=== PATIENT | male | born 1995 | race Caucasian/White ===

== ENCOUNTER 2024-03-11 16:48 | Emergency (ER) | payer OTHER, SELFPAY ==
[2024-03-11 16:49] VITALS: BP 120/88; PULSE 78; RESP 16; TEMP 36.8; O2SAT 100; BMI 25.6
--- NOTE | 2024-03-11 17:02 | ED.RN ---
Spoke w/ Whitney from [facility]. She will be in for screening.
--- NOTE | 2024-03-11 17:15 | RAD_ITS ---
INDICATION: TRAUMA EXAMINATION/TECHNIQUE: X-RAY - LEFT XR Hand Min 3 Views 3 VIEWS COMPARISON: FINDINGS: BONES: Comminuted fracture proximal phalanx of the thumb midshaft extends distally to the articular surface at the interphalangeal joint, with minimal displacement. JOINTS: No dislocation. SOFT TISSUES: Unremarkable. RAD/Hand Min 3 Views IMPRESSION: Acute comminuted intra-articular fracture proximal phalanx of the thumb. Electronically Signed: Maribel Amaro MD at 18:18 EDT ,
--- NOTE | 2024-03-11 17:56 | EX.ED.UPPERE ---
HPI History of Present Illness HPI Narrative: Healthy 28-year-old male history of depression and anxiety. An hour ago was at work cut his left thumb caught in a clamp type of device. Causing a laceration to the dorsum of his left thumb. He is right-hand dominant. Tetanus is up-to-date this year. Is having numbness distally to the thumb. Chief Complaint: Upper Extremity Injury Informant: patient Occured/Mechanism Mechanism/Context: Yes injury Onset/Context/Timing Onset: Today Context: Sudden Onset Timing: Continuous Quality of Pain: Sharp Current Severity: Moderate Maximum Severity: Moderate Associated Symptoms Associated Symptoms: Positive for Parasthesia; Negative for Weakness or Loss of Funtion Narrative Narrative: 20-year-old male Worker's Comp. injury left thumb about an hour ago. Tetanus up-to-date. Tetanus Immunization: <5 years Prior similar symptoms: No Recent Illness/Hospitalization: No PFSH PFSH Medical History no medical history Home Medications ?Medication ?Instructions ?Recorded ?Last Taken ?Type cephalexin 500 mg capsule 500 mg PO TID 7 days #21 caps 03/11/24 Unknown Rx hydrocodone-acetaminophen 5-325mg 1 tab PO Q6H PRN pain 4 days #16 03/11/24 Unknown Rx 5mg-325mg tabs Allergy/AdvReac Type Severity Reaction Status Date / Time No Known Allergies Allergy Verified 03/11/24 16:50 Social History Smoking Status: Never smoker ROS ROS ED ROS Narrative Denies recent illness. Constitutional Constitutional ED: Denies chills or fever(s) Eyes Eyes: Denies blurry vision ENT ENT ED: Denies ear pain Cardiovascular Cardiovascular: Denies chest pain Respiratory/Chest Respiratory/Chest: Denies cough Gastrointestinal Gastrointestinal: Denies abdominal pain Genitourinary Genitourinary ED: Denies dysuria or hematuria Musculoskeletal Musculoskeletal: Denies back pain Integumentary Denies abscess Neurologic Neurologic: Denies headache(s) Psychiatric Psychiatric: Denies anxiety Endocrine Endocrinology: Denies cold intolerance Hematologic/Lymphatic Hematologic/Lymphatic: Denies easy bleeding Allergic/Immunologic Allergic/Immunologic ED: Denies mouth swelling EXAM Physical Exam Narrative Exam Narrative: Well-appearing 28-year-old male. Vital signs stable afebrile. H EENT exam unremarkable. Lungs clear. Heart regular rhythm. Abdomen soft nontender. Moving all 4 extremities. Left thumb bandaged. Bandage taken off. Dorsum of his left thumb over the proximal phalanx between his metacarpal phalangeal and interphalangeal joint there is a diagonal laceration. Involves the skin and subcu tissue. Does appear to have some partial extensor tendon involvement on the radial side. He also distally has normal cap refill but does have decreased sensation there may be a digital nerve injury. He can extend and hold it. There does not appear to be a complete tendon rupture. There is minor bleeding. Otherwise the hands unremarkable. As is the wrist. Const Vital Signs: 03/11/24 16:49 Temperature 98.3 F Temperature Source Oral Pulse Rate 78 Respiratory Rate 16 Blood Pressure 120/88 H Blood Pressure Mean 98 Pulse Ox 100 Oxygen Delivery Method Room Air Positive well nourished and well developed; Negative for obese, cachectic, contractures or unkempt General Appearance ED: well developed and NAD; Negative for unkempt, cachectic, contractures, cyanotic or diaphoretic Nutritional Appearance: Negative for cachectic or obese HEENT Reports moist mucous membranes normocephalic and atraumatic; Negative for trauma or tenderness Eyes PERRL and EOMs intact bilaterally General Eye ED: Negative for other Neck full ROM and supple General: Negative for tenderness Chest Wall inspection of chest normal and palpation of chest normal Chest: Negative for other Resp normal respiratory effort and clear to auscultation bilaterally Effort and Inspection: Negative for pain with movement Auscultation: Negative for rales, rhonchi, wheezes or diminished lung sounds Cardio regular rate, regular rhythm, S1 normal heart sound, S2 normal heart sound and no murmurs Rate: Negative for bradycardia or tachycardic Rhythm: Negative for abnormal rhythm GI non-tender, non-distended and no masses Inspection: Negative for abdominal distention Auscultation: normoactive bowel sounds Palpation: soft; Negative for tender, guarding or rebound tenderness present Back/Spine no CVA tenderness General Back: Negative for CVA tenderness Cervical Spine: Negative for cervical spine tenderness Thoracic Spine / Upper Back: Negative for thoracic spinal tenderness Lumbar Spine / Lower Back: Negative for lumbar spinal tenderness Extremity normal to inspection and full ROM Extremity Narrative: Except left thumb. Dorsum between his am CPE and interphalangeal joint there is a diagonal laceration involve the skin and subcu tissue. Does appear to have some partial extensor tendon involvement on the radial side. He has full flexion extension. He can extend against resistance. Distally he has decreased sensation there may be a digital nerve injury. There is minor bleeding. No significant swelling. He does have bony tenderness. Neuro oriented x3, CN's II-XII intact bilaterally, moves all extremities, no focal motor deficits and No no sensory deficits noted Sensorium / Orientation: alert, oriented to person, oriented to place and oriented to time Motor Exam: strength 5/5 throughout Psych mental status grossly normal Appearance: Negative for unkempt Mood & Affect: Negative for depressed, anxious or tearful Skin Lesions: no lesions Rashes: no rashes Trauma: laceration MDM MDM MDM Narrative Medical decision making narrative: 28-year-old male Worker's Comp. injury as a an open fracture of his left thumb proximal phalanx. Concern also for partial extensor tendon laceration and/or partial digital nerve injury with decreased sensation. However plastic surgery did 2 point discrimination and patient had good sensation. Plastic surgery will also evaluate the tendon better. Tetanus is up-to-date. I have already spoken to plastic surgery Dr. Roach who is coming into the emergency department to evaluate the patient whether he can take him to the OR tonight or just wash it out and thinks it electively in the next several days. Procedures Upper Extremity Splints Upper Extremity Splint: Orthoglass and - (Left thumb spica splint applied by myself.) Splint Fabrication: Fabricated Location: Left Discharge Plan Triage Chief Complaint: Upper Extremity Injury ED Provider: Alfredito Huffman Dx/Rx/DC Orders Clinical Impression: Open fracture of thumb, Encounter related to worker's compensation claim Instructions: ED Fracture, Thumb Prescriptions: New cephalexin 500 mg capsule 500 mg PO TID 7 Days Qty: 21 0RF hydrocodone-acetaminophen 5-325 mg tablet 1 tab PO Q6H PRN (Reason: pain) 4 Days Qty: 16 0RF Referrals: Handy Roach MD [Med Staff - Active Staff] - As soon as possible Activity Restrictions/Additional Instructions: Follow with Dr. Roach for surgery. Ice and elevate. Keep dry and clean. Motrin and Tylenol for pain. If you need stronger I wrote you for hydrocodone for pain. Keep the splint on. Keep it dry and clean. The antibiotic Keflex 1 pill 3 times a day for a week to prevent infection. Print Language: Bolivian Disposition Disposition: Home, Self Care
--- NOTE | 2024-03-11 17:56 | EX.PCM.CON.S ---
Assessment & Plan Assessment/Plan (1) Open fracture of thumb: PLAN: Open thumb fracture was washed out and an attempted fracture reduction was performed in the emergency department (please see separate operative note for dictation) tonight patient's tetanus is up-to-date He will be sent home on Keflex Repeat from x-ray following reduction, with Xeroform and a thumb spica Patient to follow-up later this week for further fracture management HPI Consult Data Date of Consult: 03/11/24 HPI Narrative Reason for Consultation: Left thumb open fracture HPI Narrative: FELIPE BYRD is a 28 YO M with a history of bipolar disorder who presents with an open fracture of his left thumb from a crush injury while at work. 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 He was working with a piece of machinery that holds the ceramic material and his thumb got pinched/crushed. Patient complains of sharp severe pain in the left upper extremity, worsened by movements and improved with rest and elevation. 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 He is He does not smoke [facility] Medical History no medical history Home Medications ?Medication ?Instructions ?Recorded ?Last Taken ?Type cephalexin 500 mg capsule 500 mg PO TID 7 days #21 caps 03/11/24 Unknown Rx hydrocodone-acetaminophen 5-325mg 1 tab PO Q6H PRN pain 4 days #16 03/11/24 Unknown Rx 5mg-325mg tabs Allergy/AdvReac Type Severity Reaction Status Date / Time No Known Allergies Allergy Verified 03/11/24 16:50 Social History Smoking Status: Never smoker Physical Exam Narrative Left upper extremity Laceration of the dorsum of the thumb (2 cm) and on the volar thumb (1 cm) with intervening skin bridge Open fracture at the base of the laceration Deformity with radial angulation of the thumb at the level of the fracture Thumb ulnar and radial collateral ligaments intact at neutral and 30 degrees of flexion with ulnar and stress. Motor: Intact flexion and extension at the IP joint of left thumb. He bends and extends with thumb MCP joint as well Sensation: 3 mm 2-point discrimination distal to the zone of injury on the radial and ulnar borders of the left thumb (he was 3 mm on the contralateral uninjured as well). His sensation to pinprick is also intact in the radial and ulnar borders of the left hand. Vascular: Biphasic Doppler signal on the volar thumb on its radial and ulnar sides (intact digital arteries distal to the zone of injury) Const oriented x3 General Appearance: cooperative HEENT normocephalic Resp normal respiratory effort Cardio Rate: regular rate Rhythm: regular rhythm Imaging I reviewed the left hand x-ray today (from 11 March 2024) There is a comminuted intra-articular thumb proximal phalanx fracture (intra-articular with IP joint). It is displaced Charges/Coding Visit Charges Office Visits / Consults: [id number] OP Consult L5
--- NOTE | 2024-03-11 18:03 | OP.PCM_ITS ---
Problems Associated Problem List Diagnoses (1) Open fracture of thumb: Operative Report Date of Procedure: 03/11/24 Procedure Date: 11 March 2024 Incision/Procedure Start Time: 6: 15 pm Incision Close/Procedure End Time: 6: 45 pm PATIENT: Nolan Delcid PRE-OPERATIVE DIAGNOSIS: Left Thumb Crush Injury with Open Fracture of the Proximal Phalanx POST-OPERATIVE DIAGNOSIS: Same PROCEDURE PERFORMED: 1) Washout of open fracture, left upper extremity, CPT 24400 2) simple laceration repair, volar thumb, 1 cm, CPT 46632 3) simple laceration repair, dorsal thumb, 2 cm, CPT 36297 OPERATIVE FINDINGS: * Superficial laceration on the volar side of the thumb (seem to be just through to subcutaneous tissue). No obvious digital nerve injury at the base of the wound. * EPL was visualized through the dorsal laceration, and was slightly frayed from the crush injury on the radial side, but was greater than 90% intact. INDICATIONS: Nolan Humphrey is a 28-year-old male with past medical history of bipolar disorder who had a thumb crush injury while at work. He sustained an open fracture to his proximal phalanx, which was intra-articular into the IP joint, with the condylar heads both in separate pieces. It was grossly unstable. I recommended immediate washout of the open fractures with closure, and the patient wanted to proceed. My preoperative examination demonstrated that he had full IP joint flexion and extension (no obvious EPL or FPL injuries). He also had 3 mm 2-point discrimination distal to the zone of injury on the radial and ulnar thumb borders, which was the same as the contralateral thumb. The thumb tip is warm and well-perfused per my Doppler exam distal to the zone of injury (good digital artery signal). Patient signed my consent for photos and for the procedure. Urine output: No Osei IV fluids: None Anesthesia: 1% plain lidocaine, 15 cc for digital block OPERATIVE DETAILS: A timeout was performed and the patient was prepped and draped in sterile fashion. The open fracture (bone and tendon at the base of the wound) was irrigated thoroughly with 500 cc of normal saline on both sides (volar and dorsal) and was subsequently explored with the above-noted operative findings. There was no foreign bodies within the wound. He tolerated the procedure well. 3-0 nylon suture was then used to close the volar 1 cm laceration in the dorsal 2 cm laceration with interrupted sutures for simple repair. An attempt at fracture reduction was made but it was quite obvious that the fracture was very unstable and was not going to hold any reduction in place. Xeroform was applied over the incisions and a thumb spica splint was placed. Patient tolerated the procedure well. EBL: 5 cc POST-OPERATIVE PLAN: I reviewed the x-ray following the above-noted procedure. The fracture is significantly displaced and is intra-articular and needs surgery. We will plan for operative fixation. Patient will remain in a thumb spica splint. He has been placed on a course of Keflex for the open fracture and received 2 g of Ancef IV while in the emergency department. Procedures Integumentary [id number]: Other Procedure See Report (Operative Report )
[2024-03-11 18:49] VITALS: BP 121/76; PULSE 76; RESP 16; O2SAT 99
--- NOTE | 2024-03-11 18:56 | RAD_ITS ---
INDICATION: POST REDUCTION EXAMINATION/TECHNIQUE: X-RAY - LEFT XR Hand Min 3 Views 3 VIEWS COMPARISON: Left hand x-rays earlier. FINDINGS: BONES: Comminuted fracture of the mid to distal aspect of the proximal phalanx of the thumb again noted, extends to the articular surface at the interphalangeal joint. There is now increased displacement of the main transverse component midshaft, approximately 4 to 5 mm of radial/dorsal displacement of the distal fragment increased compared to the earlier study. The distal component of the fracture is nondisplaced. JOINTS: No dislocation. SOFT TISSUES: Unremarkable. RAD/Hand Min 3 Views IMPRESSION: Increased displacement of the midshaft component of the fracture of the proximal phalanx compared to earlier. Electronically Signed: Maribel Amaro MD at 20:19 EDT ,
[2024-03-11] MEDS: Cefazolin 2 GM in 0.9% Normal Saline (100mL Bag) 100 ML IV (19:13)
[2024-03-11] MEDS: Lidocaine 1% (20 ml mdv) 20 ML Vial 10 ML INFILT (19:47)
[2024-03-11 19:55] VITALS: BP 118/69; PULSE 71; RESP 16; TEMP 36.2; O2SAT 99
== END 2024-03-11 19:56 | disposition home or self-care (01) ==
LOC: ED 19:50
PROVIDERS: Emergency Provider Emergency Medicine; Visit Provider Emergency Medicine
DX: S62.512B Displaced fracture of proximal phalanx of left thumb, initial encounter for open fracture (principal); F31.9 Bipolar disorder, unspecified; Y99.0 Civilian activity done for income or pay; F41.9 Anxiety disorder, unspecified; W23.0XXA Caught, crushed, jammed, or pinched between moving objects, initial encounter
CPT/HCPCS: 12002; 29130; 73130; 96365; 99285

== ENCOUNTER 2024-03-13 08:28 | Day surgery (SDC) | payer OTHER, SELFPAY ==
[2024-03-13] VITALS (7 sets, daily range): BP systolic 121–125; BP diastolic 82–86; PULSE 59–76; RESP 14–16; TEMP 36.5–36.6; O2SAT 99–100; BMI 24.5
--- NOTE | 2024-03-13 09:03 | PRE.ANES_ITS ---
ASA Classification* ASA Classification ASA Classification: 2 Assessment & Plan Anesthesia* Anesthesia Assessment Anesthesia Assessment: Discussed sedation and/or anesthesia options, risks, benefits, and alternatives with patient/parents/legal guardian/POA. Questions invited. The patient/parents/legal guardian/POA seems to understand and agrees to proceed with anesthesia plan. Reviewed the physical assessment, medical history, allergy history and patient home medications list prior to surgery/procedure/anesthetic and documented any changes. Performed airway and anesthesia risk assessments. 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 When Was Last Pacemaker Check QUESTION #4 FULL TEXT: You/Your Family Experience fever (hyperthermia) with Anesthesia Last Oral Intake Last Oral intake: Last Oral Intake NPO since Meds taken in AM with sips of water? Meds patient instructed to take am of surgery PONV PONV - missile control pilot: PONV - missile control pilot Female No 03/12/24 13:24 HX of Motion Sickness No 03/12/24 13:24 HX of N/V After Surgery No 03/12/24 13:24 Non-Smoker Yes 03/12/24 13:24 Duration of Surgery greater Yes 03/12/24 13:24 than 60 minutes Number of Risk Factors 2 03/12/24 13:24 PONV Score Moderate Risk 03/12/24 13:24 Height & Weight Height & Weight: Anesthesia: Height & Weight Height 6 ft 2 in 03/11/24 16:49 Respiratory Assessment Respiratory Assessment - missile control pilot: Respiratory Tract Infection Hx - missile control pilot Hx Respiratory Tract Infection Yes: COVID NO FEVER SINCE 03/12/24 13:24 14/24. MILD COUGH AT THIS TIME STOP Sleep Apnea STOP Sleep Apnea - missile control pilot: STOP Sleep Apnea - missile control pilot Hx Hypertension No 03/12/24 13:24 Hx Sleep Apnea No 03/12/24 13:24 CPAP BIPAP Do you snore loudly (louder Yes 03/12/24 13:24 than talking or can be heard Do you often feel tired/ No 03/12/24 13:24 fatigued/ sleepy during daytime? Has anyone observed you stop Yes 03/12/24 13:24 breathing during sleep? STOP Results Positive 03/12/24 13:24 QUESTION #5 FULL TEXT : Do you snore loudly (louder than talking or can be heard through closed doors)? 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 Specify any problems Hx of Preganancy in last 3 N/A 03/12/24 13:24 Months Nurse Filling Out Transfusion DSCHRIBER 03/12/24 13:24 & Questions: Date: 03/12/24 03/12/24 13:24 Time: 13:27 03/12/24 13:24 Patient unable to answer at this time (ie. confused, unrespo /Reproduction History /Reproductive History - missile control pilot: /Reproductive Hx- missile control pilot Hx Now No 03/12/24 13:24 Gestational Age (in weeks): EDC: Hx Hx Para Hx Section SAB No 03/12/24 13:24 Active Medications Active Medications: Current Medications Generic Name Dose Route Start Last Admin Trade Name Freq PRN Reason Stop Dose Admin Cefazolin Sodium 2 gm/ Sodium 110 mls @ 150 mls/hr 03/13/24 10:30 Chloride IV 03/13/24 11:13 PREOP ONE Lactated Ringer's 1,000 mls @ 15 mls/hr 03/13/24 08:45 IV .Q48H STUART PFSH Medical History Suicide attempt Wears glasses Mood disorder Depression Back pain Injury of back Heartburn Non-smoker Shortness of breath on exertion Leg cramps Home Medications ?Medication ?Instructions ?Recorded ?Last Taken ?Type cephalexin 500 mg capsule 500 mg PO TID 7 days #21 caps 03/11/24 Unknown Rx hydrocodone-acetaminophen 5-325mg 1 tab PO Q6H PRN pain 4 days #16 03/11/24 Unknown Rx 5mg-325mg tabs fluoxetine 20 mg capsule 20 mg PO DAILY 03/12/24 Unknown History oxcarbazepine 150 mg tablet 300 mg PO DAILY 03/12/24 Unknown History Allergy/AdvReac Type Severity Reaction Status Date / Time No Known Allergies Allergy Verified 03/12/24 13:21 Surgical History Hx of wisdom tooth extraction Social History Smoking Status: Never smoker Review of Systems (Anesthesia) ROS Narrative System reviewed and no additional complaints, except as documented.
[2024-03-13] MEDS: Lactated Ringers 1,000 ML 15 ML IV (09:10)
--- NOTE | 2024-03-13 10:20 | RAD_ITS ---
STUDY: X-RAY - LEFT HAND, ATTENTION FIRST FINGER REASON FOR EXAM: Male, 28 years old. ORIF of proximal phalanx of first digit. TECHNIQUE: 2 intraoperative digital documentation view(s) of the finger were obtained. COMPARISON: X-rays of the left hand dated March 11, 2024 FINDINGS: 2 intraoperative digital documentation views show pins placed at the comminuted fracture site in the distal phalanx with near-anatomic alignment. 312 images acquired. 5 images saved. Total exposure time 5 minutes 6 seconds. Longest single exposure 4 seconds. Total DAP 3.3314 mGycm2. Total air kerma 1.3888 mGy. RAD/Finger(s) Min 2 Views IMPRESSION: Intraoperative digital documentation views. Electronically Signed: Nolan Jennings MD at 12:35 EDT ,
--- NOTE | 2024-03-13 10:23 | HP.PCM.SX_ITS ---
HPI - General HPI Narrative FELIPE YBRD is a 28 YO M with a history of bipolar disorder who presents with an open fracture of his left thumb from a crush injury while at work. 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 He was working with a piece of machinery that holds the ceramic material and his thumb got pinched/crushed. Patient complains of sharp severe pain in the left upper extremity, worsened by movements and improved with rest and elevation. 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 He is He does not smoke CURRENT ENCOUNTER, 13 March 2024: Here today for surgery. Meeting him in preop and marking left hand. I discussed with him and his today the procedure and the risks and benefits. NO CHANGE in health history since he was seen in the ED two night ago. COUNTS INCLUDE 234 BEDS AT THE [facility] Medical History Suicide attempt Wears glasses Mood disorder Depression Back pain Injury of back Heartburn Non-smoker Shortness of breath on exertion Leg cramps Home Medications ?Medication ?Instructions ?Recorded ?Last Taken ?Type cephalexin 500 mg capsule 500 mg PO TID 7 days #21 caps 03/11/24 03/13/24 Rx hydrocodone-acetaminophen 5-325mg 1 tab PO Q6H PRN pain 4 days #16 03/11/24 03/13/24 05:15 Rx 5mg-325mg tabs fluoxetine 20 mg capsule 20 mg PO DAILY 03/12/24 03/13/24 05:15 History oxcarbazepine 150 mg tablet 300 mg PO DAILY 03/12/24 03/13/24 05:15 History Allergy/AdvReac Type Severity Reaction Status Date / Time No Known Allergies Allergy Verified 03/12/24 13:21 Surgical History Hx of wisdom tooth extraction Social History Smoking Status: Never smoker Vital Signs Vital Signs Vital Signs: 03/13/24 09:06 03/13/24 09:06 Temperature 97.7 F L Temperature Source Temporal Pulse Rate 59 L Respiratory Rate 16 Respiratory Pattern Normal Blood Pressure 124/83 H Blood Pressure Mean 96 Blood Pressure Source Monitor Blood Pressure Position Semi-Fowlers Blood Pressure Location Right Arm Pulse Ox 100 Oxygen Delivery Method Room Air Weight Weight: 191 lb Body Mass Index (BMI) 24.5 Physical Exam Narrative Left upper extremity Laceration of the dorsum of the thumb (2 cm) and on the volar thumb (1 cm) are intact, no drainge. Deformity with radial angulation of the thumb at the level of the fracture Thumb ulnar and radial collateral ligaments intact at neutral and 30 degrees of flexion with ulnar and stress. Motor: Intact flexion and extension at the IP joint of left thumb. He bends and extends with thumb MCP joint as well Sensation: 3 mm 2-point discrimination distal to the zone of injury on the radial and ulnar borders of the left thumb (he was 3 mm on the contralateral uninjured as well). His sensation to pinprick is also intact in the radial and ulnar borders of the left hand. Vascular: Biphasic Doppler signal on the volar thumb on its radial and ulnar sides (intact digital arteries distal to the zone of injury) REPEAT SENSORY EXAM ON DATE OF SURGERY, 13 Mar 2024: No numbness/tingling in the left thumb. Says it feels normal. His 2 point was done today and was 1-2 mm on the radial and ulnar borders of the thumb distal to the zone of injury (caliper used). Const oriented x3 General Appearance: cooperative HEENT normocephalic Resp normal respiratory effort Cardio Rate: regular rate Rhythm: regular rhythm Assessment & Plan Assessment/Plan (1) Encounter related to worker's compensation claim: PLAN: I discussed with him extensively the plan for today's surgery (ORIF v CRPP). His understands risks and benefits. I talked to them about damage to surrounding structures, hardware failure/infection, need for repeat surgery, malunion/nonunion, residual pain, failure to prevent arthritis in the IP joint from the intra-articular portion of the fracture. We talked about post-op plan for several weeks of no lifting, splinting/casting, and hand therapy. They are in agreement and would like to proceed. (2) Open fracture of thumb: Charges/Coding Procedures Integumentary [id number]: Other Procedure See Report (no charge )
[2024-03-13] MEDS: Cefazolin 2 GM in 0.9% Normal Saline (100mL Bag) 100 ML IV (10:40)
[2024-03-13] MEDS: Bupivacaine 0.25% 30 ML Vial (11:50)
--- NOTE | 2024-03-13 12:14 | PCM.POST.ANE ---
Anesthesia: Postop Eval I Current Vital Signs Temperature: 97.7 F Pulse Rate: 76 Blood Pressure: 124/84 Respiratory Rate: 16 Pulse Ox: 99 Oxygen Delivery Method: Room Air Assessment Airway patent: Yes Spontaneous unlabored respirations: Yes Mental status: Awake and Calm nausea: No Vomiting: No Anesthesia Complication: No Fluid Hydration Crystalloid volume administer (ml): 600 Total IV fluid infused: 600 Progress Note Anesthesia document: Postop Eval 1 completed: Yes
--- NOTE | 2024-03-13 12:31 | POSTOPAN2_ITS ---
Anesthesia Postop Eval I Sum Postop Eval Completion status Anesthesia document: Postop Eval 1 completed: Yes Anesthesia Postop Eval I Summary Anesthesia Postop Eval I Summary: Anesthesia Postop Eval I: Assessment Summary Airway patent Yes 03/13/24 12:15 SALES [email or web address] Spontaneous unlabored Yes 03/13/24 12:15 SALES [email or web address] respirations Mental status Awake,Calm 03/13/24 12:15 SALES [email or web address] nausea No 03/13/24 12:15 SALES [email or web address].[email or web address] Vomiting No 03/13/24 12:15 SALES [email or web address] Anesthesia Postop Eval I: Fluid Summary Crystalloid volume administer 600 03/13/24 12:15 SALES [email or web address] (ml) Colloids volume administered ( ml) Blood Product volume administered (ml) Total IV fluid infused 600 03/13/24 12:15 SALES [email or web address] Anesthesia Postop Eval I: Summary Notes Anesthesia Complication No 03/13/24 12:15 SALES [email or web address].[email or web address] Anesthesia Complication Comment: Post-operative progress note Anesthesia: Postop Eval II Evaluation Mental status: Awake Pain Level: 0 nausea: No Vomiting: No
--- NOTE | 2024-03-13 12:31 | PCM.POSTANE2 ---
Anesthesia Postop Eval I Sum Postop Eval Completion status Anesthesia document: Postop Eval 1 completed: Yes Anesthesia Postop Eval I Summary Anesthesia Postop Eval I Summary: Anesthesia Postop Eval I: Assessment Summary Airway patent Yes 03/13/24 12:15 STERILIZATION [email or web address] Spontaneous unlabored Yes 03/13/24 12:15 STERILIZATION [email or web address].[email or web address] respirations Mental status Awake,Calm 03/13/24 12:15 STERILIZATION [email or web address] nausea No 03/13/24 12:15 STERILIZATION TECHNICIAN.[email or web address] Vomiting No 03/13/24 12:15 STERILIZATION [email or web address] Anesthesia Postop Eval I: Fluid Summary Crystalloid volume administer 600 03/13/24 12:15 STERILIZATION [email or web address] (ml) Colloids volume administered ( ml) Blood Product volume administered (ml) Total IV fluid infused 600 03/13/24 12:15 STERILIZATION [email or web address] Anesthesia Postop Eval I: Summary Notes Anesthesia Complication No 03/13/24 12:15 STERILIZATION [email or web address] Anesthesia Complication Comment: Post-operative progress note Anesthesia: Postop Eval II Evaluation Mental status: Awake Pain Level: 0 nausea: No Vomiting: No
--- NOTE | 2024-03-13 18:29 | OP.PCM_ITS ---
Operative Report Date of Procedure: 03/13/24 Surgery/Procedure Date: 13 March 2024 Incision/Procedure Start Time: 11:02 am Incision Close/Procedure End Time: 12:01 pm PATIENT: Nolan Delcid PRE-OPERATIVE DIAGNOSIS: Left thumb fracture POST-OPERATIVE DIAGNOSIS: same PROCEDURE PERFORMED: 1) closed reduction percutaneous pinning of the left thumb fracture, CPT code 07326 OPERATIVE FINDINGS: Reducible proximal phalanx of the left thumb fracture, distal aspect with comminution and then intra-articular component with 2 separate condylar fragments. 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 I washed him out in the emergency department 2 nights ago on 11 March 2024. He was able to bend and extend his thumb at that time and his nerves were intact based on my exam. This morning I repeated the exam so as to make sure we did not miss a nerve injury, and he again had 1-2 mm 2-point discrimination on the radial and ulnar borders of the thumb distal to the zone of injury. I was not concern for nerve injury as he was also not complaining of any numbness or tingling. I talked to him extensively about open reduction internal fixation versus closed reduction percutaneous pinning, and he understood the risk of hardware failure, infection, malunion and nonunion, failure to obtain the desired result, arthritis, pain, and other risks of surgery. He wanted to proceed. Capjohni is 3. OPERATIVE DETAILS: A time-out was performed to confirm patient identity, site of surgery, and planned procedures. After that, the patient was transferred over the the operating table in supine position. Sequential compressive stockings were applied to bilateral lower extremities and activated. General anesthesia was administered. After that, a total of 10 mL of quarter percent bupivacaine was used to perform a digital block at the base of the operative digit for post- operative pain control. The operative extremity was then prepped and draped in the standard sterile fashion. Another time-out was performed to confirm patient identity, review patient allergy, confirm site of surgery, planned procedures, and discuss antibiotic plans. No tourniquet was used. The mini c-arm was also draped sterilely. We began by performing closed reduction of the proximal phalanx fracture of the left thumb u nder fluoroscopy to confirm that the fracture was reducible. This was found to be the case. We then placed the first K wire, a small 0.028 K wire, transversely through the separate condylar head fragments. This provided excellent reduction of the intra-articular component of the fracture. Two 0.35 K-wires were then placed retrograde through the radial corner and the ulnar corners of the thumb proximal phalanx (condylar recesses) across the fracture site, towards the ulnar corner and radial corner of the proximal portion of the proximal phalanx. We then checked under fluoroscopy to confirm that the reduction was accurate, and flexed all digits into a composite fist to ensure that there was no malrotation. There was no malrotation and a good cascade as evidenced by the aforementioned exam but also based on the reduction on fluoroscopy (PA and lateral). After reduction of the fracture was achieved and confirmed under fluoroscopy, the K-wires were trimmed and bent.. Final AP, lateral, and oblique views of the digit were taken to show proper reduction and stabilization of the fracture. Xeroform was placed around the pin site. The patient was then placed into a thumb spica splint. All counts were correct at the conclusion of the case. The patient tolerated the procedure without any immediate complication and was transported to PACU in good condition.? EBL: Minimal 600 cc of normal saline for IV fluid Anesthesia with sedation with 10 cc of 0.25% marcaine for a digital block Ancef was used for perioperative antibiotic POST-OPERATIVE PLAN: Continue thumb spica and the patient will see me in clinic next week for pin site check and change into a cast (plan on immobilization for 4 weeks in a cast). Other fingers are free to move, but the thumb is splinted above and below the fracture in the thumb spica (including forearm). He was told not to move/use the hand other than to move his fingers (not his thumb) for range of motion exercises. He has pain medication and Keflex already from the emergency department.
== END 2024-03-13 13:13 | disposition home or self-care (01) ==
LOC: SDC 08:31 → AC 08:33
PROVIDERS: Referring Provider Surgery Plastic and Reconstructive Surgery; Visit Provider Surgery Plastic and Reconstructive Surgery
PROC: (CPT 26727; principal; 2024-03-13 10:15)
DX: S62.512B Displaced fracture of proximal phalanx of left thumb, initial encounter for open fracture (principal); F31.9 Bipolar disorder, unspecified; W31.9XXA Contact with unspecified machinery, initial encounter; Y99.0 Civilian activity done for income or pay; Z79.891 Long term (current) use of opiate analgesic; Z79.899 Other long term (current) drug therapy
CPT/HCPCS: 26727; 73140; 76000; J7120; J2405

== ENCOUNTER → 2024-03-22 | Outpatient (CLI) | payer OTHER, SELFPAY ==
--- NOTE | 2024-03-22 16:25 | RAD_ITS ---
EXAM: XR LEFT HAND COMPLETE, 3 OR MORE VIEWS CLINICAL INDICATION: post op TECHNIQUE: Frontal, lateral and oblique views of the left hand. COMPARISON: XR Hand dated 03/11/2024 FINDINGS: BONES/JOINTS: 3 K wires are in place fixating the fracture of the first proximal phalanx. Fracture fragments are well aligned. No subluxation deformity. SOFT TISSUES: Normal. No soft tissue swelling or gas. No radiopaque foreign body. RAD/Hand Min 3 Views IMPRESSION: Satisfactory postop changes. Electronically Signed: Isidro Kemp MD at 16:50 EDT ,
== END | disposition home or self-care (01) ==
LOC: RAD 16:15
PROVIDERS: Referring Provider Surgery Plastic and Reconstructive Surgery; Visit Provider Surgery Plastic and Reconstructive Surgery
DX: S62.502B Fracture of unspecified phalanx of left thumb, initial encounter for open fracture (principal); X58.XXXA Exposure to other specified factors, initial encounter; Z98.890 Other specified postprocedural states
CPT/HCPCS: 73130

== ENCOUNTER → 2024-04-05 | Outpatient (CLI) | payer OTHER, SELFPAY ==
--- NOTE | 2024-04-05 13:15 | RAD_ITS ---
STUDY: X-RAY - LEFT HAND REASON FOR EXAM: Male, 28 years old. Postoperative evaluation. TECHNIQUE: 3 view(s) of the hand. COMPARISON: March 22, 2024 FINDINGS: Normal radiocarpal articulation. Normal distal radioulnar joint. Normal visualized carpal bones. Normal carpal articulations Normal carpometacarpal articulation of the thumb. Normal second through fifth carpometacarpal joints. Stable 10 placement in the proximal phalanx of the first digit with minimal callus formation, near anatomic alignment and no complicating features . Soft tissue swelling over the first finger. RAD/Hand Min 3 Views IMPRESSION: Stable uncomplicated ORIF of proximal phalanx of first digit. Electronically Signed: Nolan Jennings MD at 13:48 EDT ,
== END | disposition home or self-care (01) ==
LOC: RAD 13:14
PROVIDERS: Referring Provider Nurse Practitioner Family; Visit Provider Nurse Practitioner Family
DX: S62.50 Fracture of unspecified phalanx of thumb (principal); X58.XXXA Exposure to other specified factors, initial encounter
CPT/HCPCS: 73130

== ENCOUNTER → 2024-04-12 | Outpatient (CLI) | payer OTHER, SELFPAY ==
--- NOTE | 2024-04-12 16:10 | RAD_ITS ---
INDICATION: F/u after CRPP EXAMINATION/TECHNIQUE: X-RAY - LEFT XR Hand Min 3 Views COMPARISON: 04/05/2024 left hand radiographs. FINDINGS: 3 views left hand. Stable left thumb proximal phalanx comminuted intra-articular fracture with external fixator orthopedic pins in place. No other definite acute osseous abnormality. RAD/Hand Min 3 Views IMPRESSION: Stable post procedure and posttraumatic change of the left thumb as above. Electronically Signed: Lino Rasmussen MD at 3:25 EDT ,
== END | disposition home or self-care (01) ==
LOC: RAD 16:07
PROVIDERS: Referring Provider Surgery Plastic and Reconstructive Surgery; Visit Provider Surgery Plastic and Reconstructive Surgery
DX: S62.502B Fracture of unspecified phalanx of left thumb, initial encounter for open fracture (principal); X58.XXXA Exposure to other specified factors, initial encounter
CPT/HCPCS: 73130

== ENCOUNTER → 2024-04-26 | Outpatient (CLI) | payer OTHER, SELFPAY ==
--- NOTE | 2024-04-26 15:35 | RAD_ITS ---
INDICATION: trauma EXAMINATION/TECHNIQUE: X-RAY - LEFT XR Hand Min 3 Views 3 VIEWS COMPARISON: 04/12/2024. FINDINGS: Previously noted pins in the first digit have been removed. Subacute fracture of the first proximal phalanx. There is 4 mm lateral (radial) displacement of the distal fragments relative to the proximal fragment. Alignment is anatomic. No demonstrated periosteal reaction or bridging callus. No new fracture. Joint spaces are maintained. Soft tissues are unremarkable. No radiopaque foreign body or soft tissue gas. RAD/Hand Min 3 Views IMPRESSION: First proximal phalangeal fracture as described. Electronically Signed: Kendra Askew MD at 21:58 EDT Reading Location ID and State: [id number] / Tel , Service support ,
== END | disposition home or self-care (01) ==
PROVIDERS: Referring Provider Surgery Plastic and Reconstructive Surgery; Visit Provider Surgery Plastic and Reconstructive Surgery
DX: S62.502B Fracture of unspecified phalanx of left thumb, initial encounter for open fracture (principal); X58.XXXA Exposure to other specified factors, initial encounter
CPT/HCPCS: 73130

== ENCOUNTER 2024-04-29 07:21 | Day surgery (SDC) | payer OTHER, SELFPAY ==
[2024-04-29] VITALS (10 sets, daily range): BP systolic 116–137; BP diastolic 76–87; PULSE 63–654; RESP 16–22; TEMP 36.4–36.6; O2SAT 98–100; BMI 25.4
[2024-04-29] MEDS: Lactated Ringers 1,000 ML 15 ML IV (07:48)
--- NOTE | 2024-04-29 08:14 | PRE.ANES_ITS ---
ASA Classification* ASA Classification ASA Classification: 2 Assessment & Plan Anesthesia* Anesthesia Assessment Anesthesia Assessment: Discussed sedation and/or anesthesia options, risks, benefits, and alternatives with patient/parents/legal guardian/POA. Questions invited. The patient/parents/legal guardian/POA seems to understand and agrees to proceed with anesthesia plan. Reviewed the physical assessment, medical history, allergy history and patient home medications list prior to surgery/procedure/anesthetic and documented any changes. Performed airway and anesthesia risk assessments. Anesthesia Type Anesthesia Type: General Anesthesia Focused Assessment* Temperature: 97.9 F Pulse Rate: 70 Blood Pressure: 137/87 Respiratory Rate: 18 Pulse Ox: 100 Airway Assessment Mouth opens: >3 cm Mallampati Score: II Focused Labs Anesthesia Preop lab: CBC CHEMISTRY COAG Pre-Assessment Diagnosis/Proposed Procedure Planned Operative Procedure(s): ORIF left thumb fracture possible bone graft Anesthesia History Anesthesia History - transportation operations manager: Anesthesia History - transportation operations manager Hx Hospitalization No 04/29/24 07:57 Any Problems With Anesthesia No 04/29/24 07:57 Cholinesterase deficiency No 04/29/24 07:57 You/Your Family Experience No 04/29/24 07:57 fever (hyperthermia) with Relationship Recent Exposure to Contagious No 04/29/24 07:56 Disease Does patient have nerve No 04/29/24 07:57 stimulator Patient instructed to have device shut off --Does patient have Pacemaker No 04/29/24 07:53 or ICD? When Was Last Pacemaker Check QUESTION #4 FULL TEXT: You/Your Family Experience fever (hyperthermia) with Anesthesia Last Oral Intake Last Oral intake: Last Oral Intake NPO since 00:00 04/29/24 07:53 Meds taken in AM with sips of No 04/29/24 07:53 water? Meds patient instructed to take am of surgery PONV PONV - transportation operations manager: PONV - transportation operations manager Female No 04/29/24 07:57 HX of Motion Sickness No 04/29/24 07:57 HX of N/V After Surgery No 04/29/24 07:57 Non-Smoker No 04/29/24 07:57 Duration of Surgery greater No 04/29/24 07:57 than 60 minutes Number of Risk Factors PONV Score Height & Weight Height & Weight: Anesthesia: Height & Weight Height 6 ft 2 in 04/29/24 07:53 Weight: 89.811 kg 04/29/24 07:53 Body Mass Index (BMI) 25.4 04/29/24 07:53 Respiratory Assessment Respiratory Assessment - transportation operations manager: Respiratory Tract Infection Hx - transportation operations manager Hx Respiratory Tract Infection No 04/29/24 07:57 STOP Sleep Apnea STOP Sleep Apnea - transportation operations manager: STOP Sleep Apnea - transportation operations manager Hx Hypertension No 04/29/24 07:57 Hx Sleep Apnea No 04/29/24 07:57 CPAP BIPAP Do you snore loudly (louder No 04/29/24 07:57 than talking or can be heard Do you often feel tired/ No 04/29/24 07:57 fatigued/ sleepy during daytime? Has anyone observed you stop No 04/29/24 07:57 breathing during sleep? STOP Results Negative 04/29/24 07:57 QUESTION #5 FULL TEXT : Do you snore loudly (louder than talking or can be heard through closed doors)? Tobacco Use History Tobacco Use History - transportation operations manager: Tobacco Use History - transportation operations manager Tobacco Use Smoking Status Current some day smoker 04/29/24 07:57 Hx Tobacco Use No 04/29/24 07:57 Years Smoking 1 04/29/24 07:57 Packs Smoked per Day 0 04/29/24 07:57 Smoking Cessation Date was within the last 15 years Hx Smoking Cessation Date 04/07/24 04/29/24 07:57 Hx Smoking Cessation Counseling Hematologic Medial History Hematologic Hx - transportation operations manager: Hematologic Medical Hx - forging die sinker Hx of Blood Transfusion No 04/29/24 07:57 Hx of Transfusion in last 3 No 04/29/24 07:57 Months Date of Last Transfusion (if within last 3 months) Ever experience any problems No 04/29/24 07:57 with transfusion(s)? Specify any problems Hx of Preganancy in last 3 N/A 04/29/24 07:57 Months Nurse Filling Out Transfusion SFRANTZ 04/29/24 07:57 & Questions: Date: 04/29/24 04/29/24 07:57 Time: 08:00 04/29/24 07:57 Patient unable to answer at this time (ie. confused, unrespo /Reproduction History /Reproductive History - transportation operations manager: /Reproductive Hx- transportation operations manager Hx Now No 04/29/24 07:57 Gestational Age (in weeks): EDC: Hx Hx Para Hx Section SAB No 04/29/24 07:57 Active Medications Active Medications: Current Medications Generic Name Dose Route Start Last Admin Trade Name Freq PRN Reason Stop Dose Admin Cefazolin Sodium 2 gm/ Sodium 110 mls @ 150 mls/hr 04/29/24 07:34 Chloride IV 04/29/24 08:17 X1 ONE Lactated Ringer's 1,000 mls @ 15 mls/hr 04/29/24 07:45 04/29/24 07:48 IV 15 mls/hr .Q48H STUART Administration PFSH Medical History Suicide attempt Wears glasses Mood disorder Depression Back pain Injury of back Heartburn Non-smoker Shortness of breath on exertion Leg cramps Home Medications ?Medication ?Instructions ?Recorded ?Last Taken ?Type fluoxetine 20 mg capsule 20 mg PO DAILY 03/12/24 04/28/24 History oxcarbazepine 150 mg tablet 300 mg PO DAILY 03/12/24 04/28/24 History Allergy/AdvReac Type Severity Reaction Status Date / Time No Known Allergies Allergy Verified 04/29/24 07:41 Surgical History H/O reduction of closed fracture H/O hand surgery Hx of wisdom tooth extraction Social History Smoking Status: Current some day smoker tobacco type: cigarettes alcohol intake: never substance use type: does not use additional social history: denies vaping, denies marijuana, denies edibles uses ibuprofen and aspirin as needed Review of Systems (Anesthesia) ROS Narrative System reviewed and no additional complaints, except as documented.
--- NOTE | 2024-04-29 09:16 | PCM.HP.STD ---
HPI - General HPI Narrative Current Encounter (DATE OF SURGERY H&P UPDATE): I saw and examined the patient this morning in pre-operative holding. We discussed risks and benefits of today's surgery and they would like to proceed. NO CHANGE in health history since last seen and evaluated. Ready to proceed with surgery. [facility] Medical History Suicide attempt Wears glasses Mood disorder Depression Back pain Injury of back Heartburn Non-smoker Shortness of breath on exertion Leg cramps Home Medications ?Medication ?Instructions ?Recorded ?Last Taken ?Type fluoxetine 20 mg capsule 20 mg PO DAILY 03/12/24 04/28/24 History oxcarbazepine 150 mg tablet 300 mg PO DAILY 03/12/24 04/28/24 History Allergy/AdvReac Type Severity Reaction Status Date / Time No Known Allergies Allergy Verified 04/29/24 07:41 Surgical History H/O reduction of closed fracture H/O hand surgery Hx of wisdom tooth extraction Social History Smoking Status: Current some day smoker tobacco type: cigarettes alcohol intake: never substance use type: does not use additional social history: denies vaping, denies marijuana, denies edibles uses ibuprofen and aspirin as needed Vital Signs Vital Signs Vital Signs: 04/29/24 07:53 04/29/24 07:56 04/29/24 08:14 Temperature 97.9 F 97.9 F Temperature Source Temporal Pulse Rate 70 70 Respiratory Rate 18 18 Respiratory Pattern Normal Blood Pressure 137/87 H 137/87 H Blood Pressure Mean 103 Blood Pressure Source Monitor Blood Pressure Position Semi-Fowlers Blood Pressure Location Right Arm Pulse Ox 100 100 Oxygen Delivery Method Room Air Weight Weight: 198 lb Body Mass Index (BMI) 25.4 Physical Exam Narrative Thumb spica splint in place. Fingers warm and well perfused. Assessment & Plan Assessment/Plan (1) Open fracture of thumb: PLAN: Patient is 6 weeks from CRPP of the left thumb fracture. I believe the intra-articular component of the fracture between the condyles of the proximal phalanx has healed. I'm concerned that the transverse fracture will not heal as is (now displaced), and the patient would be best served with an operation to re-reduce the fracture and providing rigid fixation. I discussed with him extensively the plan for surgery again this morning (29 Apr 2024), which is likely open reduction internal fixation with possible bone grafting from the distal radius. I talked to him about the risks of the bone breaking further with fixation/shattering as the parts that have healed may once again fracture with fixation. I talked to him about the risks of doing nothing (nonunion). I told him that stiffness will likely be a big problem for him going forward, especially since we are placing a plate, but this is what he needs for rigid fixation and healing. I talked to them again today (29 Apr 2024) about damage to surrounding structures, hardware failure/hardware infection, need for repeat surgery, again malunion/nonunion, residual pain, failure to prevent arthritis in the IP joint. I talked to him about the risks of anesthesia. We talked about the post-operative plan for several weeks of no lifting, splinting/casting, and hand therapy. Mr. Delcid is in agreement and would like to proceed. INTERVAL H&P PLAN, DATE OF SURGERY: We will proceed with surgery today. (2) Encounter related to worker's compensation claim:
[2024-04-29] MEDS: Cefazolin 2 GM in 0.9% Normal Saline (100mL Bag) 100 ML IV (09:37)
--- NOTE | 2024-04-29 09:56 | RAD_ITS ---
INDICATION: ORIF THUMB EXAMINATION/TECHNIQUE: X-RAY - LEFT HAND XR Fingers Min 2 Views 17 VIEWS COMPARISON: Prior study dated: 04/26/2024 FINDINGS: Images of the left thumb were obtained intraoperatively on a C-arm for open reduction internal fixation of fracture of the proximal phalanx of the thumb side plate and screws. Images were obtained for documentation. The alignment and position appear to be unremarkable. Number of fluoroscopic images: 16 Fluoroscopy time: 137 seconds. Radiation dose: 0.694 mGy. RAD/Finger(s) Min 2 Views IMPRESSION: Status post ORIF as described above Electronically Signed: Farhat Becker MD at 12:11 EDT ,
[2024-04-29] MEDS: Bupiv/Epi 0.25% 30 ML Vial (10:45)
--- NOTE | 2024-04-29 11:20 | PCM.POST.ANE ---
Anesthesia: Postop Eval I Current Vital Signs Temperature: 97.9 F Pulse Rate: 78 Blood Pressure: 128/86 Respiratory Rate: 22 Pulse Ox: 98 Oxygen Delivery Method: Room Air Assessment Airway patent: Yes Spontaneous unlabored respirations: Yes Mental status: Awake and Calm nausea: No Vomiting: No Anesthesia Complication: No Fluid Hydration Crystalloid volume administer (ml): 500 Total IV fluid infused: 500 Progress Note Post-operative progress note: SHIVERING Anesthesia document: Postop Eval 1 completed: Yes
--- NOTE | 2024-04-29 11:47 | POSTOPAN2_ITS ---
Anesthesia Postop Eval I Sum Postop Eval Completion status Anesthesia document: Postop Eval 1 completed: Yes Anesthesia Postop Eval I Summary Anesthesia Postop Eval I Summary: Anesthesia Postop Eval I: Assessment Summary Airway patent Yes 04/29/24 11:21 [email or web address] Spontaneous unlabored Yes 04/29/24 11:21 [email or web address] respirations Mental status Awake,Calm 04/29/24 11:21 [email or web address] nausea No 04/29/24 11:21 [email or web address] Vomiting No 04/29/24 11:21 [email or web address] Anesthesia Postop Eval I: Fluid Summary Crystalloid volume administer 500 04/29/24 11:21 [email or web address] (ml) Colloids volume administered ( ml) Blood Product volume administered (ml) Total IV fluid infused 500 04/29/24 11:21 [email or web address] Anesthesia Postop Eval I: Summary Notes Anesthesia Complication No 04/29/24 11:21 [email or web address] Anesthesia Complication Comment: Post-operative progress note SHIVERING 04/29/24 11:21 TRAFFIC [email or web address] Anesthesia: Postop Eval II Evaluation Mental status: Awake Pain Level: 0 nausea: No Vomiting: No
--- NOTE | 2024-04-29 11:47 | PCM.POSTANE2 ---
Anesthesia Postop Eval I Sum Postop Eval Completion status Anesthesia document: Postop Eval 1 completed: Yes Anesthesia Postop Eval I Summary Anesthesia Postop Eval I Summary: Anesthesia Postop Eval I: Assessment Summary Airway patent Yes 04/29/24 11:21 [email or web address] [email or web address] Spontaneous unlabored Yes 04/29/24 11:21 MASTER [email or web address] respirations Mental status Awake,Calm 04/29/24 11:21 [email or web address] [email or web address] nausea No 04/29/24 11:21 MASTER [email or web address] Vomiting No 04/29/24 11:21 MASTER [email or web address] Anesthesia Postop Eval I: Fluid Summary Crystalloid volume administer 500 04/29/24 11:21 MASTER [email or web address] (ml) Colloids volume administered ( ml) Blood Product volume administered (ml) Total IV fluid infused 500 04/29/24 11:21 [email or web address] [email or web address] Anesthesia Postop Eval I: Summary Notes Anesthesia Complication No 04/29/24 11:21 MASTER [email or web address] Anesthesia Complication Comment: Post-operative progress note SHIVERING 04/29/24 11:21 MASTER [email or web address] Anesthesia: Postop Eval II Evaluation Mental status: Awake Pain Level: 0 nausea: No Vomiting: No
--- NOTE | 2024-04-29 16:40 | PCM.OP.BLANK ---
Operative Report Date of Procedure: 04/29/24 Surgery/Procedure Date: 29 Apr 2024 Incision/Procedure Start Time: 10 am Incision Close/Procedure End Time: 11:05 am PATIENT: Nolan Delcid SURGEON: Handy Roach MD RETAIL LOSS PREVENTION SPECIALIST: Debbie Palacios (held retractors for exposure, performed closure of bone graft donor site) PRE-OPERATIVE DIAGNOSIS: Left thumb fracture POST-OPERATIVE DIAGNOSIS: Same PROCEDURE PERFORMED: 1) Left thumb open reduction internal fixation, CPT 41206 2) Bone graft from left distal radius to left thumb, CPT 79911 (bone graft) OPERATIVE FINDINGS: Easily reducible fracture with some callus formation around the bone fragments INDICATIONS: Nolan Delcid is a 28-year-old male who underwent closed reduction percutaneous pinning 6.5 weeks ago of his left thumb fracture. 3 K wires were removed one month after the surgery and he was placed in a removable splint; however, presumably during his therapy exercises, the transverse component of his thumb fracture had shifted, and upon evaluation in clinic on 26 April 2024, it was determined by physical exam (pain to palpation) and an x-ray that his fracture had displaced. He is therefore being brought to surgery today for open reduction internal fixation with possible bone grafting. I counseled the patient extensively on the risks of surgery, including thumb stiffness, arthritis, malunion or nonunion, need for further repeat operations, infection, bleeding, and the risks of anesthesia, as well as damage to surrounding structures including nerves and tendons. He understood the risks and wanted to proceed. OPERATIVE DETAILS: The patient was correctly identified in preoperative holding and taken back to the operating room where he was administered general anesthesia with an LMA. A tourniquet was applied on the left upper arm and he was prepped and draped in sterile fashion. A timeout was performed. The tourniquet was inflated to 250 mmHg. A curvilinear incision was made over the proximal phalanx of the left thumb and tenotomy scissors were used to dissect down to the extensor tendon/extensor expansion of the EPL. Care was taken to preserve nerve branches. 15 blade scalpel was then used to make an incision longitudinally to split the extensor expansion and then split the periosteum proximal and distal to the fracture. A [place] elevator was used to elevate the periosteum to make a landing area for a T plate. The fracture was then manipulated into position using the [place] elevator and to debride some of the callus at the fracture line. The fracture reduction was stabilized with a 0.035 K wire. A T plate was then fitted (6-hole T plate trimmed to fit, 2 mm profile). A 0.062 guidewire was then used for reduction to hold the plate. A 1.5 mm drill bit was then used to drill a hole into one of the condyles and an 8 mm long and 2 mm thick locking screw was then placed in this location. The same drill bit was then used to drill a hole proximal to the transverse fracture line for a nonlocking bicortical 10 mm screw that was 2 mm in diameter, with care taken to just barely purchase the distal cortex so as to not interfere with flexion. The K wire was then removed and another condylar locking screw was placed in similar fashion using an 8 mm screw again with 2 mm diameter. The very proximal hole of the plate was then filled in a similar fashion with a locking 7 mm screw of 2 mm diameter. We were satisfied with the reduction based on PA, lateral, and oblique imaging using the mini C arm. We turned our attention to bone grafting. An incision was made over top and just proximal to Corine's tubercle with a 15 blade scalpel and tenotomy scissors, using them to dissect down to the periosteum through the proximal portions of the extensor retinaculum with care taken to preserve cutaneous nerves and extensor tendons. A 15 blade scalpel was used to enter the periosteum and a [place] elevator was used to elevate the periosteum from the bone just proximal and to the side of Corine's tubercle. A 2 mm osteotome was used to make a small square bony window through the dorsal cortex, which was elevated to access the medullary cavity where cancellous bone was harvested with a curette for bone grafting around the fracture line. The bone graft was set underneath the plate dorsally and along the fracture line on the radial and ulnar borders. Attention was then turned to closure. The tourniquet was let down and hemostasis was obtained with bipolar electrocautery. The bone graft site was irrigated with copious amounts of normal saline and closed with 3-0 Monocryl deep dermal suture followed by 3-0 Monocryl running subcuticular suture. The periosteum was approximated over the plate with interrupted 3-0 Vicryl suture and the extensor expansion of the EPL was approximated with [id number] 3-0 Ethibond suture. This provided soft tissue closure over the plate beneath this skin/subcutaneous flaps. The dermis was then closed with 3-0 Monocryl deep dermal suture followed by several 3-0 Monocryl horizontal mattress sutures. Xeroform was applied on top. A thumb spica splint was placed. The patient tolerated the procedure well and was awakened and taken to the PACU in stable condition. EBL: 20 cc Anesthesia: General With LMA ASA: 2 IVF: 500 of LR UOP: Unmeasured Transfusions: None Preoperative antibiotics: Ancef 2 g Tourniquet time: 42-minute. POST-OPERATIVE PLAN: Patient placed in a thumb spica and will follow-up in clinic on 07 May 2024 for reevaluation of the wounds and an x-ray. Patient is to elevate the left upper extremity for pain control and is not to lift or do any therapy in the meantime.
== END 2024-04-29 12:29 | disposition home or self-care (01) ==
LOC: SDC 07:23 → AC 07:24
PROVIDERS: Referring Provider Surgery Plastic and Reconstructive Surgery; Visit Provider Surgery Plastic and Reconstructive Surgery
PROC: (CPT 26735; principal; 2024-04-29 10:55)
DX: S62.512A Displaced fracture of proximal phalanx of left thumb, initial encounter for closed fracture (principal); X58.XXXA Exposure to other specified factors, initial encounter; Y99.0 Civilian activity done for income or pay; F17.210 Nicotine dependence, cigarettes, uncomplicated; Z79.899 Other long term (current) drug therapy
CPT/HCPCS: 26735; 20900; 01830; 73140; 76000; C1713; J7120; A4216; J2405

== ENCOUNTER 2024-07-11 11:30 | Outpatient (RCR) | payer OTHER, SELFPAY ==
--- NOTE | 2024-04-19 11:40 | HP.OTEVAL ---
Patient's Visit Information Visit Information Visit Information: FELIPE BYRD is a 28 year old M, referred to Occupational Therapy by Dr. Handy Roach MD, with a diagnosis of fx left phalanx thumb. Date of Evaluation: 04/18/24 Occupational Therapist: ARIE Eisenberg/Lisa, CHT Subjective Subjective: This 28 year old male was seen for OT eval with dx of open left thumb fx. on 03/11/24. Pt states was injured at work, went to ER and ended up having sx to repair his left thumb. DOS 03/13/24 pins removed 04/12/24 - pt arrives in need of custom orthosis to provide support and protection to left thumb. pt currently off work and would like to return as soon as he is able. pt limited with all ADLs that require bilateral hands. Pain left thumb: Current Pain Intensity: 0 Pain Intensity Range: 0 ROM CMC: right 15* left 15* MP: right 70* left 30* IP: right 80 left Strength Cone Machine Operator: right 120# left NT Lateral Pinch: right 30# left NT Tripod Pinch: right 22# left NT Edema Other: right IP 6.7 left 8.0 Sensation Sensation Comments: denies Quick DASH-Disab of Arm,Shoulder& Hand Quick DASH Score: 55.0000 Goals Goal:Daily scar massage when approriate: Yes Goal:ROM equal to unaffected hand: Yes Goal:Cone Machine Operator/Pinch strength at least 75% of unaffected hand: Yes Comment: will not initiate until Dr. Doc conrad Goal:No pain with affected hand use: Yes Goal:PIP Circumferences equal to unaffected hand: Yes Comment: IP of thumb Goal:Full use of affected hand in daily activities including work: Yes Goal:Improvement in sensation documented by [place] monofiliaments: Yes Goal:Decrease scar hypersensitivity: Yes Other Goal: pt will demo understanding of orthosis use and precautions by end of 1st session. pt will demo IND doffing/donning of orthosis by end of 1st session. pt will demo understanding of if precautions or irritation arises he is to return to clinic for orthosis adj. by end of 1st session. Rehabilitation General Assessment: pt arrives 5 weeks and 1 day s/p from left thumb Phalanx pinning- pins removed on 04/12/24. pt arrives for custom orthosis to provide protection and support until structure heals. pt demo need for skilled OT services 2x week for 6 weeks to return pt to his PLOF. Today therapist ed. pt on dx and healing of bone structure- therapist felipe. custom orthosis to protect left thumb IP and MP allowing for CMC motion. pt was ed. in use and wear and care- pt demo understanding and agree to POC. Rehabilitation Potential: Good Anticipated Interventions Anticipated Interventions: A/AAROM/PROM, Strengthening, Modalities, Orthoses, Joint Protection/Energy Conservation, Education re Diagnosis and Home Program Visit Plan Frequency: 2x /Week Duration: 6 Weeks General Plan: orthosis to protect healing structures light AROM will not initiate PROM or resistive ex until Dr. Roach approves TEXT: Thank you for the opportunity to evaluate your patient. For Medicare and Medicare HMO plans, please review the plan of care and approve it. It will need to be FAXED BACK to us at [phone] for Medicare purposes. Please let me know if there are questions or concerns regarding this plan of care. Physician Signature: Date:
--- NOTE | 2024-09-20 11:16 | HP.OT.NRP ---
Patient Information Patient Information: FELIPE BYRD was seen in my office for initial evaluation on 04/18/24. The following Plan of Care was established for this patient: POC Established Initial Frequency: 2x /Week Initial Duration: 6 Weeks Plan: cont to use hand with daily tasks PROM use static progressive 10x a day for 20 min to increase ROM Anticipated Interventions Anticipated Interventions: A/AAROM/PROM, Strengthening, Modalities, Orthoses, Joint Protection/Energy Conservation, Education re Diagnosis and Home Program Last Seen Last Seen: This patient was last seen in our office 07/11/24. Pertinent comments regarding their Occupational therapy will appear below: pt was seen for 9 OT session progressed well in therapy- pt returned to work and no further apts were scheduled. pt d/c due to time lapse in services. At this point I will be discontinuing this patient from occupational therapy. I would be happy to see this patient again in the future if found appropriate by the physician. Thank you! Chapis Armando, OTR/L, CHT
== END 2024-07-11 19:00 | disposition home or self-care (01) ==
LOC: OT 11:30
PROVIDERS: Visit Provider Surgery Plastic and Reconstructive Surgery
DX: S62.50 Fracture of unspecified phalanx of thumb (principal)
CPT/HCPCS: 97110; 97140; 97166; 97530; 97760

== ENCOUNTER → 2024-09-05 | Outpatient (CLI) | payer OTHER, SELFPAY ==
--- NOTE | 2024-09-05 09:51 | RAD_ITS ---
PROCEDURE: FINGER(S) MIN 2 VIEWS REASON FOR EXAM: Fracture fixation follow-up TECHNIQUE: 3 view(s) of the left thumb COMPARISON: Left thumb exam of 07/30/2024 RAD/Finger(s) Min 2 Views IMPRESSION: Plate and screws transfixing the left 1st proximal phalangeal fracture site rem ain in place, without evidence of loosening or metallic fracture. Stable alignment is seen. Interval healing is noted. Reading Location: [id number]
== END | disposition home or self-care (01) ==
LOC: RAD 09:51
PROVIDERS: PCP Family Medicine; Referring Provider Surgery Plastic and Reconstructive Surgery; Visit Provider Surgery Plastic and Reconstructive Surgery
DX: S62.50 Fracture of unspecified phalanx of thumb (principal); X58.XXXA Exposure to other specified factors, initial encounter
CPT/HCPCS: 73140

== ENCOUNTER → 2024-11-21 | Outpatient (CLI) | payer OTHER, SELFPAY ==
--- NOTE | 2024-11-21 14:08 | RAD_ITS ---
PROCEDURE: FINGER(S) MIN 2 VIEWS 11/21/2024 REASON FOR EXAM: FRACTURE OF LEFT THUMB TECHNIQUE: 3 view(s) of the left 1st ray COMPARISON: 09/05/2024 FINDINGS: Plate and screws at the 1st proximal phalanx appear intact without evidence of failure or lucency. Interval continued healing of fracture. Joint spaces appear within limits. RAD/Finger(s) Min 2 Views IMPRESSION: Plate and screws at the 1st proximal phalanx appear intact without evidence of failure or lucency. Interval continued healing of fracture. Reading Location: [id number]
== END | disposition home or self-care (01) ==
PROVIDERS: PCP Family Medicine; Referring Provider Surgery Plastic and Reconstructive Surgery; Visit Provider Surgery Plastic and Reconstructive Surgery
DX: S62.502B Fracture of unspecified phalanx of left thumb, initial encounter for open fracture (principal); X58.XXXA Exposure to other specified factors, initial encounter
CPT/HCPCS: 73140